=== PATIENT | male | born 1945 | race Caucasian/White ===

== ENCOUNTER 2017-01-11 08:08 | Emergency (ER) | payer MEDICARE, OTHER ==
[2017-01-11] MEDS ORDERED: Pantoprazole 40 MG Vial IVPUSH ONE (08:25)
[2017-01-11] MEDS ORDERED: Ondansetron 4 MG/2 ML SDV IVPUSH ONE (08:28)
--- NOTE | 2017-01-11 08:31 | EDM.PDOC ---
ED HPI GENERAL MEDICAL PROBLEM - General Chief Complaint: Gastrointestinal Problem Stated Complaint: bloody emesis and stools Time Seen by Provider: 01/11/17 08:23 Source of Information: Reports: Patient, Family ( WHO IS AN RN) History Limitations: Reports: No Limitations - History of Present Illness INITIAL COMMENTS - FREE TEXT/NARRATIVE: PT STATES HE HAS FELT WEAK AND DEVELOPED LOWER ABD PAIN AND NAUSEA OVER PAST FEW DAYS. HAD BLACK BM YESTERDAY AND THIS AM. ONE EPISODE OF VOMITING THIS AM THAT LOOKED BLACK. ABD DESCRIBED CRAMPING. DENIES FEVER, SOB, CP, CAAL, OR VISION CHANGES. Onset: Gradual Duration: Day(s): Location: Reports: Abdomen Quality: Reports: Ache, Other (CRAMPING) Improves with: Reports: None Worsens with: Reports: None Associated Symptoms: Reports: Nausea/Vomiting - Related Data Allergies Allergy/AdvReac Type Severity Reaction Status Date / Time No Known Allergies Allergy Verified 01/11/17 08:40 Home Meds: Home Meds Insulin Glarg,Human.Rec.Analog [Lantus] 60 units SQ DAILY 04/08/16 [History] Levothyroxine 112 mcg PO DAILY 04/08/16 [History] Omeprazole Magnesium [Prilosec Otc] 20 mg PO 1800 04/08/16 [History] Warfarin [Coumadin] 5 mg PO MOFR 04/08/16 [History] metFORMIN HCl [Metformin HCl] 1,000 mg PO BIDMEALS 04/08/16 [History] Enalapril [Vasotec] 2.5 mg PO BID #60 tablet 04/14/16 [Rx] Furosemide [Lasix] 20 mg PO DAILY #60 tablet 04/14/16 [Rx] Spironolactone [Aldactone] 50 mg PO DAILY #60 tablet 04/14/16 [Rx] Lactulose [Chronulac] 15 - 30 ml PO DAILY 01/11/17 [History] Past Medical History Cardiovascular History: Reports: Blood Clots/VTE/DVT, Heart Murmur Respiratory History: Reports: COPD Other Gastrointestinal History: portal hypertension,blood clot in the portal vein, - Past Surgical History GI Surgical History: Reports: Cholecystectomy, Other (See Below) Social & Family History - Family History HEENT: Reports: None Cardiac: Reports: None Respiratory: Reports: None GI: Reports: None : Reports: Other (See Below) OBGYN: Reports: None Musculoskeletal: Reports: None Neurological: Reports: Dementia (father had dementia) Psychiatric: Reports: None Endocrine/Metabolic: Reports: None Hematologic: Reports: None Immunologic: Reports: None Dermatologic: Reports: Urticaria Oncologic: Reports: None - Tobacco Use Smoking Status *Q: Unknown Ever Smoked Years of Tobacco use: 35 Packs/Tins Daily: 1 Used Tobacco, but Quit: Yes Month Tobacco Last Used: August Second Hand Smoke Exposure: No - Caffeine Use Caffeine Use: Reports: Coffee - Recreational Drug Use Recreational Drug Use: No ED ROS GENERAL - Review of Systems Review Of Systems: ROS reveals no pertinent complaints other than HPI. Constitutional: Reports: Weakness HEENT: Reports: No Symptoms Respiratory: Reports: No Symptoms Cardiovascular: Reports: No Symptoms Endocrine: Reports: No Symptoms GI/Abdominal: Reports: Abdominal Pain, Black Stool, Hematemesis, Nausea, Vomiting : Reports: No Symptoms Musculoskeletal: Reports: No Symptoms Skin: Reports: No Symptoms Neurological: Reports: No Symptoms Psychiatric: Reports: No Symptoms Hematologic/Lymphatic: Reports: No Symptoms Immunologic: Reports: No Symptoms ED EXAM, GI/ABD - Physical Exam Exam: See Below Exam Limited By: No Limitations General Appearance: Alert, WD/WN, No Apparent Distress Eyes: Bilateral: Normal Appearance Nose: Normal Inspection, No Blood Throat/Mouth: Normal Inspection, Normal Oropharynx, No Airway Compromise Head: Atraumatic, Normocephalic Neck: Normal Inspection Respiratory/Chest: No Respiratory Distress, Lungs Clear, Normal Breath Sounds, No Accessory Muscle Use, Chest Non-Tender Cardiovascular: Tachycardia (AT 110) GI/Abdominal Exam: Normal Bowel Sounds, Soft, Tender (MILDLY TENDER DIFFUSELY), Hepatomegaly Back Exam: Normal Inspection. No: CVA Tenderness (L), CVA Tenderness (R) Extremities: Normal Inspection, No Pedal Edema Neurological: Alert, Oriented, Normal Cognition Psychiatric: Normal Affect, Normal Mood Skin Exam: Warm, Dry, Intact, Normal Color, No Rash Course - Orders/Labs/Meds Orders: Active Orders 24 hr Category Date Time Status Abdomen Pelvis w Cont [CT] Stat Exams 01/11/17 08:23 Ordered AMYLASE [CHEM] Stat Lab 01/11/17 08:23 Ordered CBC WITH AUTO DIFF [HEME] Stat Lab 01/11/17 08:23 Ordered COMPREHENSIVE METABOLIC PN,CMP [CHEM] Stat Lab 01/11/17 08:23 Ordered INR,PT,PROTHROMBIN TIME [COAG] Stat Lab 01/11/17 08:23 Ordered LIPASE [CHEM] Stat Lab 01/11/17 08:23 Ordered MAGNESIUM [CHEM] Stat Lab 01/11/17 08:23 Ordered PTT,PARTIAL THROMBOPLSTIN TIME [COAG] Stat Lab 01/11/17 08:23 Ordered UA W/MICROSCOPIC [URIN] Stat Lab 01/11/17 08:23 Uncollected Pantoprazole [ProTONIX IV] Med 01/11/17 08:25 Once 40 mg IVPUSH ONETIME ONE - Radiology Interpretation Free Text/Narrative:: CT ABD/PELVIS WITH IV CONTRAST SHOWS HEP CIRRHOSIS AND PORTAL HYPERTENSION - Re-Assessments/Exams Free Text/Narrative Re-Assessment/Exam: 01/11/17 10:34 PT AFEBRILE, VSS. DISCUSSED CASE WITH DR DICKERSON AT . WILL ACCEPT TRANSFER OF CARE Departure - Departure Time of Disposition: 10:36 Disposition: DC/Tfer to Acute Hospital 02 Condition: Poor Clinical Impression: Abdominal pain, Portal hypertension GI bleed Qualifiers: GI bleed type/associated pathology: unspecified gastrointestinal hemorrhage type Qualified Code(s): K92.2 - Gastrointestinal hemorrhage, unspecified Hepatic cirrhosis Qualifiers: Hepatic cirrhosis type: unspecified hepatic cirrhosis Ascites presence: without ascites Qualified Code(s): K74.60 - Unspecified cirrhosis of liver Anemia Qualifiers: Anemia type: unspecified type Qualified Code(s): D64.9 - Anemia, unspecified - Discharge Information Referrals: Chandrakant Bruno [employer] [facility] [employer] [Primary Care Provider] - - My Orders Last 24 Hours: My Active Orders 01/11/17 08:23 Abdomen Pelvis w Cont [CT] Stat AMYLASE [CHEM] Stat CBC WITH AUTO DIFF [HEME] Stat COMPREHENSIVE METABOLIC PN,CMP [CHEM] Stat INR,PT,PROTHROMBIN TIME [COAG] Stat LIPASE [CHEM] Stat MAGNESIUM [CHEM] Stat PTT,PARTIAL THROMBOPLSTIN TIME [COAG] Stat UA W/MICROSCOPIC [URIN] Stat 01/11/17 08:25 Pantoprazole [ProTONIX IV] 40 mg IVPUSH ONETIME ONE - Assessment/Plan Last 24 Hours: My Active Orders 01/11/17 08:23 Abdomen Pelvis w Cont [CT] Stat AMYLASE [CHEM] Stat CBC WITH AUTO DIFF [HEME] Stat COMPREHENSIVE METABOLIC PN,CMP [CHEM] Stat INR,PT,PROTHROMBIN TIME [COAG] Stat LIPASE [CHEM] Stat MAGNESIUM [CHEM] Stat PTT,PARTIAL THROMBOPLSTIN TIME [COAG] Stat UA W/MICROSCOPIC [URIN] Stat 01/11/17 08:25 Pantoprazole [ProTONIX IV] 40 mg IVPUSH ONETIME ONE Assessment:: GI BLEED/ ANEMIA Plan: TRANSFER TO
[2017-01-11 08:50] LABS: CHLORIDE,CL 105 mmol/L (98-115); SODIUM,NA 138 mmol/L (136-145)
[2017-01-11] MEDS ORDERED: Sodium Chloride 0.9% 1,000 ML IV ONE (09:04)
[2017-01-11] MEDS ORDERED: Insulin Regular, Human 100 Units/ML 10 ML Vial IVPUSH ONE (09:04)
[2017-01-11] MEDS ORDERED: Sodium Chloride 0.9% 1,000 ML IV SCH (10:15)
[2017-01-11 10:38] VITALS: BP 87/56
== END 2017-01-11 11:00 ==
LOC: KA.ED 08:08
DX: K76.6 Portal hypertension (principal); J44.9 Chronic obstructive pulmonary disease, unspecified; K74.60 Unspecified cirrhosis of liver; K92.2 Gastrointestinal hemorrhage, unspecified; D64.9 Anemia, unspecified; Z79.4 Long term (current) use of insulin; Z79.01 Long term (current) use of anticoagulants; Z90.49 Acquired absence of other specified parts of digestive tract
CPT/HCPCS: 36415; 74177; 80053; 81001; 82150; 82272; 83690; 83735; 85025; 85610; 85730; 86850; 86900; 86901; 96361; 96374; 96375; 99285; C9113; J1817; J2405; J7030; 93005; 99284

== ENCOUNTER 2017-11-01 09:25 | Emergency (ER) | payer MEDICARE, OTHER ==
[2017-11-01 10:23] LABS: ANION GAP 23.1 mmol/L (5-15); CHLORIDE,CL 106 mmol/L (98-115); SODIUM,NA 146 mmol/L (136-145)
[2017-11-01] MEDS: Midazolam 1 MG/ML 2 ML SDV IVPUSH ONE (13:30)
[2017-11-01 13:59] VITALS: BP 112/58
== END 2017-11-01 14:35 ==
LOC: KA.ED 09:25
DX: K72.90 Hepatic failure, unspecified without coma (principal); R41.0 Disorientation, unspecified; R74.0 Nonspecific elevation of levels of transaminase and lactic acid dehydrogenase [LDH]; K55.069 Acute infarction of intestine, part and extent unspecified; E11.9 Type 2 diabetes mellitus without complications; R79.89 Other specified abnormal findings of blood chemistry; Z79.899 Other long term (current) drug therapy; Z79.4 Long term (current) use of insulin; Z79.01 Long term (current) use of anticoagulants
CPT/HCPCS: 36415; 70450; 71045; 80053; 81001; 82140; 82550; 82553; 83605; 83880; 84484; 85025; 85379; 85610; 93005; 96374; 99284; 99285; J2250